=== PATIENT | male | born 1955 | race Caucasian/White ===

== ENCOUNTER 2017-05-29 10:09 | Emergency (ER) | payer BC ==
[~2017-05-29] VITALS: Ht 185.4 cm; Wt 57.0 kg
[~2017-05-29 10:09] MED LIST: BENA25TA8 PO; DOCU1CAP39 PO; LORA-474 PO; OXYC1SOL5 PO; PRED20 PO
[2017-05-29 10:13] VITALS: BP 121/70; PULSE 82; RESP 16; TEMP 97.7; O2SAT 99
[2017-05-29] MEDS ORDERED: TRAM50 PO (11:12)
--- NOTE | 2017-05-29 11:12 | PD ---
HPI . Chest injury Chief Complaint: Injury Time Seen by Provider: 10:20 Travel History International Travel<30 days: No Contact w/Intl Traveler<30days: No Traveled to known affect area: No History of Present Illness HPI This patient presents for the evaluation of an injury to his left chest wall. He had a slip and fall and landed on his left lateral rib cage 4 days ago. He comes in to us today complaining with continued pain which she rates 10/10. However, he states that he had a previous injury to his left chest which resulted in a pneumothorax and states that the pain with the pneumothorax was much worse than the pain today. He is not having any shortness of breath. This pain has been persistent for the last 4 days. PFSH Past Medical History Diminished Hearing: No Respiratory: Yes (HX OF PNEUMO; COPD) Tetanus Vaccination: Unknown Past Surgical History Tonsillectomy: Yes Other Surgery: Yes Social History Alcohol Use: Yes (SOCIAL) Tobacco Use: Yes (1 PPD) Substance Use: No Allergies-Medications (Allergen,Severity, Reaction): Coded Allergies: No Known Allergies (Verified Adverse Reaction, Unknown, 05/29/17) Reported Meds & Prescriptions Reported Meds & Active Scripts Active Ultram (Tramadol HCl) 50 Mg Tab 50 Mg PO Q4H PRN Review of Systems Except as stated in HPI: all other systems reviewed are Neg Cardiovascular: Positive: Chest Pain or Discomfort Respiratory: No: Shortness of Breath Physical Exam Narrative GENERAL: Awake and alert and in no acute distress. SKIN: Warm and dry. No bruises or abrasions to the left lateral chest wall noted. HEAD: Normocephalic/atraumatic. EYES: Pupils are equal. Extraocular movements are intact. Distally NECK: Normal range of motion. CARDIOVASCULAR: Regular rate and rhythm. RESPIRATORY: Nonlabored respirations. Lungs are clear with full air movement throughout. Chest wall has no crepitus. MUSCULOSKELETAL: Atraumatic. NEUROLOGICAL: Nonfocal. PSYCHIATRIC: Appropriate mood and affect. Data Data Last Documented VS Vital Signs Date Time Temp Pulse Resp B/P (MAP) Pulse Ox O2 Delivery O2 Flow Rate FiO2 05/29/17 10:13 97.7 82 16 121/70 (87) 99 Orders Orders Ribs, Uni (W/Exp Cxr-Min 3vw) (05/29/17 10:20) Tramadol (Ultram) (05/29/17 11:15) [facility] Medical Decision Making Medical Screen Exam Complete: Yes Emergency Medical Condition: Yes Differential Diagnosis Differential diagnosis of chest trauma includes but is not limited to superficial abrasions/contusions, rib fracture, pneumothorax, hemothorax, pulmonary contusion, cardiac contusion, ruptured thoracic aorta Narrative Course Patient presents for evaluation. His left lower chest wall. The injury occurred 4 days ago. His lungs are clear with good air movement without. He is no crepitus. There is no bruising or abrasion. Left rib series is pending. X-rays: 1. COPD changes. 2. No pneumothorax identified. 3. No definite rib fracture identified. This patient will be discharged home with a prescription for Ultram. Diagnosis Primary Impression: Contusion of left chest wall Qualified Codes: S20.212A - Contusion of left front wall of thorax, initial encounter Patient Instructions: General Instructions, Rib Contusion (ED) Med/Other Pt SpecificInfo: Prescription(s) given Scripts Tramadol (Ultram) 50 Mg Tab 50 MG PO Q4H Y for PAIN, #12 TAB 0 Refills Prov: Becca Leong MD 05/29/17 Disposition: 01 DISCHARGE HOME Condition: Stable Becca Leong MD May 29, 2017 11:12
[2017-05-29] MEDS ORDERED: traMADol HCL 50 MG TAB PO ONE (11:15)
--- NOTE | 2017-05-29 11:58 | RADRPT ---
EXAM DATE/TIME: 05/29/2017 11:07 [facility] COMPARISON: CHEST PA & LAT, April 13, 2015, 12:59. INDICATIONS : Fall, Left lower lateral rib pain. MEDICAL HISTORY : Chronic obstructive pulmonary disease. collapsed left lung SURGICAL HISTORY : chest tube ENCOUNTER: Initial ACUITY: 4 - 6 days PAIN SCORE: 5/10 LOCATION: Left lateral lower ribs FINDINGS: Multiple views of the left ribs were performed. There is no evidence of displaced fracture. No dest ructive lesions or areas of periosteal thickening are seen. Expiratory view of the chest is negative for pneumothorax. The mediastinal structures are midline. There are COPD changes. CONCLUSION: 1. COPD changes. 2. No pneumothorax identified. 3. No definite rib fracture identified. Braxton Benitez MD on May 29, 2017 at 11:54 Board Certified Radiologist. This report was verified electronically.
== END 2017-05-29 12:26 | disposition home or self-care (01) ==
LOC: PHEFT 10:09
DX: S20.212A Contusion of left front wall of thorax, initial encounter (principal); F17.200 Nicotine dependence, unspecified, uncomplicated; W01.0XXA Fall on same level from slipping, tripping and stumbling without subsequent striking against object, initial encounter
CPT/HCPCS: 71101; 99283